=== PATIENT | female | born 1935 | race African-American/Black ===

== ENCOUNTER 2022-03-02 11:28 | Emergency (ER) | payer BC ==
[2022-03-02 11:42] VITALS: BP 153/59; PULSE 70; RESP 18; TEMP 97.9; BMI 19.5
[2022-03-02 13:04] LABS: BASO % 0.4 % (0-2.0); EOS % 0.9 % (0-4.5); HEMATOCRIT 35.9 % (32.4-45.2); HEMOGLOBIN 11.5 GM/dL (10.7-15.3); LYMPH % 28.4 % (8-40); MCH 27.1 pg (25.7-33.7); MCHC 32.1 g/dl (32.0-36.0); MEAN CELL VOLUME 84.3 fl (80-96); MEAN PLT VOLUME 7.9 fl (7.5-11.1); NEUT % 63.3 % (42.8-82.8); PLATELET COUNT 288 10^3/uL (134-434); RBC 4.26 M/mm3 (3.60-5.2); WHITE BLOOD COUNT 5.5 K/mm3 (4.0-10.0)
[2022-03-02 13:09] LABS: INR 1.09 (0.83-1.09); PROTHROMBIN TIME (PATIENT) 12.6 SEC (9.7-13.0)
[2022-03-02 13:12] LABS: ACTIVATED PTT 30.6 SECONDS (25.2-36.5)
[2022-03-02 13:19] LABS: EPI CELLS >36 /uL (0-25.1); HYALINE CASTS 1 /uL (0-3.1); PH,URINE 7.5 (5.0-8.0); URINE APPEARANCE CLEAR; URINE BACTERIA 7814 /uL (0-1359); URINE BILIRUBIN NEGATIVE (NEGATIVE); URINE COLOR YELLOW; URINE GLUCOSE (UA) NEGATIVE (NEGATIVE); URINE KETONE NEGATIVE (NEGATIVE); URINE LEUK ESTERASE 1+ (NEGATIVE); URINE NITRITE NEGATIVE (NEGATIVE); URINE PROTEIN NEGATIVE (NEGATIVE); URINE WBC 10 /uL (0-25.8)
[2022-03-02 13:25] LABS: CALCIUM 8.9 mg/dL (8.5-10.1)
[2022-03-02 13:26] LABS: ALBUMIN 3.1 g/dl (3.4-5.0); BLOOD UREA NITROGEN 16.5 mg/dL (7-18)
[2022-03-02 13:27] LABS: URINE RBC 34.6 /uL (0-23.9)
[2022-03-02 13:29] LABS: CREATININE 0.9 mg/dL (0.55-1.3)
[2022-03-02 13:31] LABS: BILIRUBIN,TOTAL 0.3 mg/dL (0.2-1); TOT PROT 7.6 g/dl (6.4-8.2)
== END 2022-03-02 16:28 | disposition home or self-care (01) ==
LOC: JER 11:28
DX: T82.897A Other specified complication of cardiac prosthetic devices, implants and grafts, initial encounter (principal)
CPT/HCPCS: 0241U-QW; 36415; 71045-TC-FY; 80053; 81003; 84484; 85025; 85610; 85730; 87086; 93005; 93010; 99285-25